=== PATIENT | female | born 1960 | race Caucasian/White ===

== ENCOUNTER 2021-01-05 12:13 | Emergency (ER) | payer BC ==
[2021-01-05] MEDS ORDERED: IBU800 MG PO (15:26)
[2021-01-05] MEDS ORDERED: HYDROCODON-ACE1 EAC4 PO (15:33)
== END 2021-01-05 18:42 | disposition home or self-care (01) ==
LOC: ER1 12:13
DX: S42.251A Displaced fracture of greater tuberosity of right humerus, initial encounter for closed fracture (principal); S93.401A Sprain of unspecified ligament of right ankle, initial encounter; I10 Essential (primary) hypertension; Z79.899 Other long term (current) drug therapy; Z88.0 Allergy status to penicillin
CPT/HCPCS: 71045; 73030; 73060; 73200; 73610; 96374; 96375; 99283; J2270; J2405